=== PATIENT | female | born 1960 | race Two or more races ===

== ENCOUNTER 2016-12-17 11:14 | Day surgery (SDC) | payer BC ==
[2016-12-16 08:47] VITALS: BMI 39.6
[~2016-12-17 11:14] MED LIST: LACTATED RINGERS 1,000 ML IV SCH
[2016-12-17 11:41] VITALS: TEMP 98.9
[2016-12-17 11:44] LABS: Glucose,Whole Blood 233 mg/dL (75-99)
[2016-12-17] MEDS ORDERED: PROPOFOL 10 MG/ML 20 ML VIAL IV ONE (12:58)
[2016-12-17] MEDS ORDERED: LIDOCAINE 1% INJ 10MG/ML (20 ML MDV) ONE (12:58)
--- NOTE | 2016-12-17 13:14 | P.GSHP ---
History of Present Illness H&P Date: 12/17/16 Chief Complaint: Epigastric pain, colitis Asst. 56-year-old female who's referred from Dr. Galicia. Patient presents today for EGD colonoscopy. She's had complaints of epigastric pain and colitis symptoms. Patient has had chronic diarrhea. Past Medical History Past Medical History: Diabetes Mellitus, Thyroid Disorder History of Any Multi-Drug Resistant Organisms: None Reported Past Surgical History: Section, Tubal Ligation Additional Past Surgical History / Comment(s): C SECTION X4 Past Anesthesia/Blood Transfusion Reactions: No Reported Reaction Past Psychological History: No Psychological Hx Reported Smoking Status: Former smoker Past Alcohol Use History: Rare Additional Past Alcohol Use History / Comment(s): STARTED SMOKING AT AGE 15 QUIT AT AGE 22 SMOKED 1/2PPD Past Drug Use History: None Reported - Past Family History Son(s) Family Medical History: Cancer Additional Family Medical History / Comment(s): ADRENAL CANCER Medications and Allergies Home Medications Medication Instructions Recorded Confirmed Type Insulin Glargine,Hum.rec.anlog 0 unit SQ DAILY 12/16/16 12/17/16 History [Lantus Solostar] Levothyroxine Sodium [Synthroid] 25 mcg PO DAILY 12/16/16 12/17/16 History Liraglutide [Victoza 3-Praveen] 1.2 mg SQ HS 12/16/16 12/17/16 History Pioglitazone [Actos] 15 mg PO DAILY 12/16/16 12/17/16 History Allergies Allergy/AdvReac Type Severity Reaction Status Date / Time No Known Allergies Allergy Verified 12/17/16 11:32 Surgical - Exam Vital Signs Temp Pulse Resp BP Pulse Ox 98.9 F 99 16 149/101 96 12/17/16 11:33 12/17/16 11:33 12/17/16 11:33 12/17/16 11:33 12/17/16 11:33 - General well developed, no distress - Eyes PERRL - ENT normal pinna - Neck no masses - Respiratory normal expansion - Cardiovascular Rhythm: regular - Abdomen Abdomen: soft, non tender Results - Labs Abnormal Lab Results - Last 24 Hours (Table) 12/17/16 Range/Units 11:40 POC Glucose (mg/dL) 233 H (75-99) mg/dL Assessment and Plan Plan: Epigastric abdominal pain, history of diarrhea consistent with colitis. We'll perform EGD colonoscopy.
--- NOTE | 2016-12-17 13:37 | P.OP ---
Date of Procedure: 12/17/16 Preoperative Diagnosis: Epigastric pain Colitis Postoperative Diagnosis: Antral gastritis No significant hiatal hernia Mild esophagitis Diverticulosis Sigmoid colon biopsy pathology pending Procedure(s) Performed: EGD Colonoscopy Implants: Anesthesia: MAC Surgeon: Bro Garcia Pathology: other (Antrum, esophagus, sigmoid colon) Condition: stable Disposition: PACU Indications for Procedure: Operative Findings: Description of Procedure: The patient's placed on the endoscopy table lateral position. She received IV sedation. The gastric scope some placed oropharynx passed in the esophagus into the stomach. Scope was then placed through the pylorus. First and second portion of the duodenum appeared normal. Scope was then brought back the antrum and this appeared mildly inflamed. A biopsies was performed. Scope was unretroflexed and remainder of the stomach appeared normal. There is no significant hiatal hernia. The GE junction was at 47 is. The distal esophagus appeared minimally inflamed and a biopsies performed. The proximal esophagus appeared normal. Scope was then brought back and withdrawn for patient. Next digital rectal exam was performed which revealed no abnormalities. The flexible colonoscope was then placed patient anus and passed throughout the entire colon. The ileocecal valve was visualized. The cecum, ascending, transverse and descending colon appeared normal. In the sigmoid colon there was asked extensive diverticular changes. There was a course the colon which looked minimal inflamed and a biopsies performed. Scope was brought back the rectum and this appeared normal. Scope was withdrawn for patient.
[2016-12-17 14:10] VITALS: BP 136/79; PULSE 87; RESP 18
[2016-12-17 14:10] LABS: Glucose,Whole Blood 182 mg/dL (75-99)
--- NOTE | 2016-12-17 16:41 | NM ---
EXAMINATION TYPE: NM hepatobiliary w EF DATE OF EXAM: 12/17/2016 COMPARISON: NONE HISTORY: Epigastric pain TECHNIQUE: After the intravenous administration of 5.5 mCi Tc 99m Mebrofenin hepatobiliary scintigrap hy is performed. Immediate images post injection. FINDINGS: There is satisfactory initial accumulation of tracer by the liver. The gallbladder is visualized wit hin 44 minutes. The small bowel activity is noted within minutes. At one hour 8 ounces of oral ensu re plus is given to mimic CCK and gallbladder ejection fraction is calculated at 52 %, in the normal range. Therefore there is no scintigraphic evidence of cystic or common bile duct obstruction to sug gest acute cholecystitis or gallbladder dyskinesia. IMPRESSION: Exam is within normal limits.
== END 2016-12-17 14:25 | disposition home or self-care (01) ==
LOC: ORWHC2ENDO 11:14
PROVIDERS: ATTEND Surgery
DX: K20.9 Esophagitis, unspecified (principal); K29.50 Unspecified chronic gastritis without bleeding; K52.9 Noninfective gastroenteritis and colitis, unspecified; E11.9 Type 2 diabetes mellitus without complications; E07.9 Disorder of thyroid, unspecified; K57.30 Diverticulosis of large intestine without perforation or abscess without bleeding; Z87.891 Personal history of nicotine dependence; Z79.84 Long term (current) use of oral hypoglycemic drugs; Z79.4 Long term (current) use of insulin; Z79.899 Other long term (current) drug therapy
CPT/HCPCS: 43239; 45380; 88305; 88342; 78226; A9537; J2001; J2704

== ENCOUNTER → 2021-08-21 | Outpatient (CLI) | payer BC ==
[2021-08-21 15:35] LABS: Appearance,Urine Clear (Clear); Bilirubin,Urine Negative (Negative); Blood,Urine Negative (Negative); Color,Urine Light Yellow; Glucose,Urine (UA) Negative (Negative); Ketones,Urine Negative (Negative); Leukocyte Esterase,Urine Negative (Negative); Nitrite,Urine Negative (Negative); PH, Urine 5.5 (5.0-8.0); Protein,Urine Negative (Negative); Specific Gravity,Urine 1.004 (1.001-1.035); Urobilinogen,Urine <2.0 mg/dL (<2.0)
[2021-08-21 19:46] LABS: HCT 43.4 % (37.2-46.3); HGB 13.8 g/dL (12.0-15.0); MCH 29.8 pg (27.0-32.0); MCHC 31.8 g/dL (32.0-37.0); MCV 93.7 fL (80.0-97.0); Mean Platelet Volume 10.6 fL (9.5-12.2); Platelet Count 275 X 10*3/uL (140-440); RBC 4.63 X 10*6/uL (4.10-5.20); RDW 13.3 % (11.5-14.5); WBC 9.45 X 10*3/uL (4.50-10.00)
[2021-08-21 20:03] LABS: INR 0.94 (0.90-1.11); Prothrombin Time 10.4 sec (9.9-11.9)
[2021-08-21 20:47] LABS: African American GFR (CKD) 92.9 (60.0-200.0); Albumin 4.1 g/dL (3.8-4.9); Albumin/Globulin Ratio 1.52 (1.60-3.17); Anion Gap 10.3 mmol/L (10.00-18.00); BUN/Creat Ratio 17.25 Ratio (12.00-20.00); Blood Urea Nitrogen 13.8 mg/dL (9.0-27.0); Calcium 9.2 mg/dL (8.7-10.3); Carbon Dioxide 24.7 mmol/L (20.0-27.5); Globulin 2.7 g/dL (1.6-3.3); Non-African American GFR(CKD) 80.1 (60.0-200.0); Potassium 4.9 mmol/L (3.5-5.5); Total Bilirubin 0.3 mg/dL (0.30-1.20); Total Protein 6.8 g/dL (6.2-8.2)
== END | disposition home or self-care (01) ==
LOC: LABPAT 13:04
PROVIDERS: ATTEND Orthopaedic Surgery
DX: Z01.812 Encounter for preprocedural laboratory examination (principal); M16.11 Unilateral primary osteoarthritis, right hip; E11.9 Type 2 diabetes mellitus without complications; E03.9 Hypothyroidism, unspecified
CPT/HCPCS: 80053; 81003; 85027; 85610; 85730; 87070; 93005

== ENCOUNTER → 2021-08-21 | Outpatient (CLI) | payer BC ==
[2021-08-21 20:46] LABS: Chol/HDL Ratio 4.34 Ratio; LDL Cholesterol,Calculated 129.9 mg/dL (0.0-131.0)
== END | disposition home or self-care (01) ==
LOC: LABWHC1 14:02
PROVIDERS: ATTEND Internal Medicine
DX: E11.9 Type 2 diabetes mellitus without complications (principal); E03.9 Hypothyroidism, unspecified
CPT/HCPCS: 36415; 80061; 83036; 83835; 84443

== ENCOUNTER → 2021-09-10 | Outpatient (CLI) | payer BC ==
[2021-09-10 16:59] LABS: INR 0.9 (<1.2); Partial Thromboplastin Time 26.7 sec (22.0-30.0)
[2021-09-10 22:39] LABS: HCT 41.3 % (37.2-46.3); HGB 13.4 g/dL (12.0-15.0); MCH 29.9 pg (27.0-32.0); MCHC 32.4 g/dL (32.0-37.0); MCV 92.2 fL (80.0-97.0); Mean Platelet Volume 10.7 fL (9.5-12.2); NRBC Per 100 WBC 0 /100 WBCS (0.0-0.0); Platelet Count 315 X 10*3/uL (140-440); RBC 4.48 X 10*6/uL (4.10-5.20); RDW 12.9 % (11.5-14.5); WBC 8.13 X 10*3/uL (4.50-10.00)
[2021-09-10 23:24] LABS: Appearance,Urine Clear (Clear); Bacteria,Urine Trace /HPF (None Seen); Bilirubin,Urine Negative (Negative); Blood,Urine Negative (Negative); Color,Urine Yellow (Yellow); Ketones,Urine Negative (Negative); Leukocyte Esterase,Urine Small (Negative); Nitrite,Urine Negative (Negative); Protein,Urine Negative (Negative); RBC,Urine 0-2 /HPF (0-2); Specific Gravity,Urine 1.017 (1.001-1.030)
[2021-09-11 01:19] LABS: African American GFR (CKD) 92.9 (60.0-200.0); Albumin 3.9 g/dL (3.8-4.9); Albumin/Globulin Ratio 1.39 (1.60-3.17); Anion Gap 14.7 mmol/L (10.00-18.00); BUN/Creat Ratio 16.88 Ratio (12.00-20.00); Blood Urea Nitrogen 13.5 mg/dL (9.0-27.0); Carbon Dioxide 21.3 mmol/L (20.0-27.5); Globulin 2.8 g/dL (1.6-3.3); Non-African American GFR(CKD) 80.1 (60.0-200.0); Potassium 4.5 mmol/L (3.5-5.5); Total Bilirubin 0.2 mg/dL (0.30-1.20); Total Protein 6.7 g/dL (6.2-8.2)
== END | disposition home or self-care (01) ==
LOC: LABPAT 15:41
PROVIDERS: ATTEND Orthopaedic Surgery
DX: Z01.812 Encounter for preprocedural laboratory examination (principal); M16.11 Unilateral primary osteoarthritis, right hip
CPT/HCPCS: 36415; 80053; 81001; 85027; 85610; 85730

== ENCOUNTER 2021-09-15 07:45 | Observation (INO) | payer BC ==
[2021-09-14 12:36] VITALS: BMI 42.5
[~2021-09-15 07:45] MED LIST changes: +ACETAMINOPHEN TAB 500 MG TAB PO PRN; +DEXAMETHASONE SOD PHOSPHATE 4 MG/ML 1 ML VIAL IV ONE; +GABAPENTIN 300 MG CAP PO PRN; +HYDROmorphone 0.5 MG/0.5 ML SYRINGE IVP PRN; -LACTATED RINGERS 1,000 ML IV SCH; +MELOXICAM 7.5 MG TAB PO PRN; +ONDANSETRON 4 MG/2 ML VIAL IVP PRN; +TRANEXAMIC ACID 1,000 MG in SODIUM CHLORIDE 0.9% 100 ML IVPB PRN
[2021-09-15] MEDS: LACTATED RINGERS 1,000 ML IV SCH ×2 (08:35→22:43)
[2021-09-15 08:36] LABS: Glucose,Whole Blood 129 mg/dL (75-99)
[2021-09-15] MEDS ORDERED: fentaNYL (PF) 50 MCG/ML 2 ML AMP ONE (08:57)
[2021-09-15] MEDS ORDERED: SODIUM CHLORIDE 0.9% 100 ML BAG ONE (08:57)
[2021-09-15] MEDS ORDERED: PROPOFOL 10 MG/ML 20 ML VIAL IV ONE (08:57)
[2021-09-15] MEDS ORDERED: TRANEXAMIC ACID 1,000 MG/10 ML VIAL ONE (08:57)
[2021-09-15] MEDS ORDERED: MIDAZOLAM 2 MG/2 ML VIAL ONE (08:57)
[2021-09-15] MEDS ORDERED: ROPIVACAINE 5 MG/ML 30 ML VIAL MISCELLANE ONE ×2 (09:37→10:12)
[2021-09-15] MEDS ORDERED: ceFAZolin 1,000 MG in SODIUM CHLORIDE 0.9% 1,000 ML IRRIGATION ONE (09:53)
--- NOTE | 2021-09-15 10:20 | P.OP ---
Date of Procedure: 09/15/21 Preoperative Diagnosis: Severe osteoarthritis right hip Postoperative Diagnosis: Severe osteoarthritis right hip Procedure(s) Performed: Right total hip arthroplasty with a direct anterior approach Implants: [employer] Polarstem standard size 4 collar [employer] R3, 3 hole hemispherical acetabular shell, 48 mm [employer] Reflection 6.5 mm cancellus screw, 20 mm 2 [employer] R3, XLPE 20 acetabular liner [employer]hew Oxinium femoral head 32 m, +0 All components were press-fit. The articulation is Oxinium on polyethylene. Anesthesia: spinal Surgeon: Robel Winter Brusher #1: Farideh Mckinney Estimated Blood Loss (ml): 200 Pathology: other (Femoral head) Condition: stable Disposition: PACU Indications for Procedure: After failure of conservative treatment we discussed the surgical and no nsurgical treatment options at length. Patient wishes to proceed with a total hip arthroplasty with a direct anterior approach. Complications specific to this procedure were discussed at length, including but not limited to infection, leg length discrepancy, dislocation, nerve injury, and fracture. Covid-19 was also discussed at length with the patient, and they are aware of the current policies and procedures. The patient was given the option of delaying surgery, but they elect to proceed knowing these risks. Patient is aware of all these complications and informed consent was obtained Operative Findings: The operative findings are consistent with severe osteoarthritis of the right hip Description of Procedure: Patient was seen and evaluated in the preoperative area and the consent was reviewed. The operative site was marked with a skin marker. The patient was then brought to the operating room and given preoperative antibiotics intravenously. 1 g of Tranexamic acid was also given intravenously. A spinal anesthetic was administered by the anesthesia department. The patient was then placed on the [place] table with the bony prominences well-padded. The hip area was then prepped with a ChloraPrep solution and draped in the usual sterile fashion. A universal timeout was then performed, which confirmed the patient's name, surgical site, ALLERGIES, and procedure being performed on the consent. Next the incision site was located at 1 cm distal and 2 cm lateral to the anterior superior iliac spine. The skin and subcutaneous tissues were sharply incised. Incision was carefully dissected down to the fascia overlying the tensor fascia roni muscle. This fascia was then incised in line with the incision. Care was taken to stay laterally in order to avoid injuring the lateral femoral cutaneous nerve. Next, using blunt finger dissection, the tensor fascia roni muscle was dissected off its investing fascia. The muscle was then carefully retracted laterally with a cobra retractor over the lateral neck of the femur. Next, the circumflex vessels were identified and cauterized using the AquaMantis device. The anterior hip capsule was then exposed. The capsule was then opened and an inverted T fashion. Cobra retractors were then placed intracapsularly. The retractors were maintained intracapsular throughout the procedure. The proximal femur was then visualized. Fluoroscopic x-rays were then taken in order to evaluate the preoperative leg lengths. A small amount of traction was placed on the leg. The femoral neck was then osteotomized at the appropriate level above the lesser trochanter. A small wedge of bone was then removed from the remaining femoral head. Next, using a corkscrew the femoral head was removed from the acetabulum. On gross visual inspection, the femoral head had complete loss of articular cartilage and multiple periarticular osteophytes. The femoral head was then measured. Attention was then turned to the acetabulum. The acetabulum was exposed and any remaining labrum was excised. Sequential reaming of the acetabulum was performed using fluoroscopic guidance until there was a good bed of bleeding cancellus bone. When the appropriate size was reached, a trial was then placed. The position and fit of the trial was checked with fluoroscopy. The trial was then removed. Then, using fluoroscopic guidance, the final implant was impacted at 20 of anteversion and 40 of abduction, and fully seated in the acetabulum. 2 screws were then placed in the acetabulum. Again fluoroscopy was used to check position of the screws. Next, the liner was then impacted, with a 20 elevated liner located in the anterior superior quadrant. Component locking was confirmed. Attention was then directed to the femur. With the aid of the Marengo table, the femur was externally rotated to approximately 130, extended, and adducted under the opposite leg. A side hook was then placed under the proximal femur, and the side hook elevator was used to elevate the proximal femur while releasing the capsule. Retractors were then placed. A capsular release was performed, as well as a release of the conjoined tendon, which afforded excellent visualization of the proximal femur. Next, a box osteotome was used to lateralize the proximal femur. A drapery hand was then used to locate the femoral canal. Sequential broaching was then performed with appropriate size which afforded excellent fixation in the proximal femur. A trial was then placed with appropriate head and neck, and the hip was gently reduced with the aid of the Maren[place] table. Fluoroscopy was then used to check position of the components, as well as to ensure equal leg lengths. The hip was then gently dislocated and the trials were then removed. Final implants were then impacted and the hip was again reduced. Final fluoroscopic x-rays confirmed that the components were in anatomic position, as well as equal leg lengths. The hip was also taken through range of motion, and found to be stable. The hip was then copiously irrigated with antibiotic solution with pulsatile lavage. The hip was then irrigated with Irrisept solution. The soft tissues were then injected with a ropivacaine solution. A second dose of 1 g of Tranexamic acid was also given intravenously. The fascia was then closed with 2-0 strata fix suture. The subcutaneous tissue was closed with 3-0 Vicryl. The subcuticular tissue was closed with 3-0 strata fix suture. The skin was then closed with Exofin skin glue. After the glue and dried, and Optifoam silver impregnated dressing was applied. The patient was then transferred to the recovery room in stable condition. The assistant hvac mechanic JAMI Hernandez was required due to the complexity of surgery, and the need for skilled orthopaedic physician assistant for positioning, draping, exposure, retraction, and closure of the wound.
[2021-09-15] MEDS ORDERED: HYDROmorphone 1 MG/ML 1 ML SYRINGE IVP PRN (10:46)
[2021-09-15] MEDS ORDERED: ONDANSETRON 4 MG/2 ML VIAL IVP PRN (10:46)
[2021-09-15] MEDS ORDERED: NALOXONE 0.4 MG/ML 1 ML VIAL IV PRN (10:46)
[2021-09-15] MEDS ORDERED: MAGNESIUM HYDROXIDE 2,400 MG/10 ML CUP PO PRN (10:46)
[2021-09-15] MEDS ORDERED: hydrOXYzine pamoate 25 MG CAP PO PRN (10:46)
[2021-09-15] MEDS ORDERED: HYDROmorphone 0.2 MG/1 ML SYRINGE IVP PRN (10:46)
--- NOTE | 2021-09-15 11:15 | XR ---
Limited right hip HISTORY: Status post right hip arthroplasty Single frontal view of the right hip. Her graft patient is status post right hip arthroplasty. There is anatomic alignment. Lucency is present within the soft tissues. IMPRESSION: Orthopedic follow-up.
--- NOTE | 2021-09-15 11:24 | XR ---
Fluoroscopy HISTORY: Right hip replacement 40 seconds fluoroscopy time supplied to the referring clinician. 2 intraoperative C-arm images docum ent the procedure. See dictated report from orthopedic surgery.
[2021-09-15 11:26] LABS: Glucose,Whole Blood 147 mg/dL (75-99)
[2021-09-15] MEDS ORDERED: LACTATED RINGERS 1,000 ML IV ONE (11:26)
[2021-09-15] MEDS: INSULIN ASPART (NovoLOG) 100 UNIT/ML VIAL SQ SCH ×3 (11:55→22:44)
[2021-09-15] MEDS: traMADol 50 MG TAB PO PRN ×3 (12:02→23:57)
[2021-09-15] MEDS: SODIUM CHLORIDE 0.9% 1,000 ML IV SCH ×2 (12:49→23:59)
[2021-09-15] MEDS: HYDROmorphone 1 MG/ML 1 ML SYRINGE IVP PRN ×2 (14:08→20:51)
[2021-09-15 16:44] LABS: Glucose,Whole Blood 294 mg/dL (75-99)
[2021-09-15 20:22] LABS: Glucose,Whole Blood 191 mg/dL (75-99)
[2021-09-15] MEDS: ASPIRIN 325 MG TAB PO SCH (20:51)
[2021-09-15] MEDS ORDERED: LIRAGLUTIDE 0.6 MG/0.1 ML SQ SCH (21:00)
[2021-09-15] MEDS ORDERED: LEVOTHYROXINE 25 MCG TAB PO SCH (21:00)
[2021-09-15] MEDS ORDERED: INSULIN DETEMIR (LEVEMIR) 100 UNIT/ML SYR SQ SCH (21:00)
[2021-09-15] MEDS ORDERED: PIOGLITAZONE 45 MG TAB PO SCH (21:00)
[2021-09-15] MEDS ORDERED: SENNOSIDES-DOCUSATE SODIUM 1 EACH TAB PO SCH (21:00)
--- NOTE | 2021-09-15 23:18 | P.CONS ---
History of Present Illness - Reason for Consult Consult date: 09/15/21 Medical management - Chief Complaint Status post right hip arthroplasty - History of Present Illness Patient is a 61-year-old female with a known history of diabetes type 2 insulin- dependent, hypothyroidism, osteoarthritis and previous history of smoking was admitted to the hospital for elective right total hip arthroplasty. Patient tolerated the procedure very well. Currently denies any complaints of right hip pain. Patient was hypotensive with blood pressure 188/88 on admission. Medicine service was consulted. Patient does also have history of diabetes. Currently patient denied any complaints of chest pain or shortness of breath. No headache or dizziness or lightheadedness. No fever no chills. No cough or sputum production. Denies any recent illnesses. Review of Systems Constitutional: Patient denies any fever or chills . No generalized weakness or weight loss. Abdomen: Patient denied nausea vomiting and diarrhea and abdominal pain. Cardiovascular: Patient denies any chest pain or short of breath no palpitations. Respiratory: patient denied any cough or sputum production. No shortness of breath Neurologic: Patient denied any numbness or tingling headache. Musculoskeletal: Patient denies any complaints of joint swelling or deformity. Skin: Negative Psychiatric: Negative Endocrine: No heat or cold intolerance. No recent weight gain. Genitourinary: No dysuria or hematuria. All other 14 point ROS negative except the above Past Medical History Past Medical History: Diabetes Mellitus, Osteoarthritis (OA), Thyroid Disorder History of Any Multi-Drug Resistant Organisms: None Reported Past Surgical History: Section, Tubal Ligation Additional Past Surgical History / Comment(s): C SECTION X4,colonoscopy, right hip arthroplasty. Past Anesthesia/Blood Transfusion Reactions: No Reported Reaction Past Psychological History: No Psychological Hx Reported Smoking Status: Former smoker Past Alcohol Use History: Rare Additional Past Alcohol Use History / Comment(s): STARTED SMOKING AT AGE 15 QUIT AT AGE 22 SMOKED 1/2PPD Past Drug Use History: None Reported - Past Family History Son(s) Family Medical History: Cancer Additional Family Medical History / Comment(s): 2 sons had adrenal cancer Medications and Allergies Home Medications Medication Instructions Recorded Confirmed Type Insulin Glargine,Hum.rec.anlog 12 - 14 unit SQ HS 12/16/16 09/14/21 History [Lantus Solostar] Levothyroxine Sodium [Synthroid] 25 mcg PO HS 12/16/16 09/14/21 History Liraglutide [Victoza 3-Praveen] 1.2 mg SQ HS 12/16/16 09/14/21 History Acetaminophen [Tylenol Extra 1,000 mg PO Q6HR PRN 08/28/21 09/15/21 History Strength] Pioglitazone [Actos] 45 mg PO HS 08/28/21 09/14/21 History Naproxen Sodium [Aleve] 440 mg PO BID PRN 09/14/21 09/14/21 History Aspirin 325 mg PO BID #60 tab 09/15/21 Rx Ondansetron Odt [Zofran Odt] 1 tab PO Q8HR PRN #10 tab 09/15/21 Rx Sennosides [Senokot] 2 tab PO DAILY PRN #60 tablet 09/15/21 Rx traMADol HCl [Ultram] 1 - 2 tab PO Q6H PRN #32 tab 09/15/21 Rx Allergies Allergy/AdvReac Type Severity Reaction Status Date / Time No Known Allergies Allergy Verified 09/15/21 08:04 Physical Exam Vitals: Vital Signs Temp Pulse Resp BP Pulse Ox 09/15/21 11:09 74 16 158/72 99 09/15/21 10:56 75 16 158/80 100 09/15/21 10:41 97 F L 90 16 165/78 99 09/15/21 08:14 97.7 F 84 16 188/88 96 Intake and Output 09/14/21 09/15/21 09/15/21 22:59 06:59 14:59 Intake Total 1001 Output Total 200 Balance 801 Intake: IV 1001 Output: Estimated Blood Loss 200 Other: Weight 102.6 kg PHYSICAL EXAMINATION: Patient is lying in the bed comfortably, no acute distress, awake alert and oriented.. HEENT: Normocephalic. Neck is supple. Pupils reactive. Nostrils clear. Oral cavity is moist. Neck reveals no JVD, carotid bruits, or thyromegaly. CHEST EXAMINATION: Trachea is central. Symmetrical expansion. Lung ferreira clear to auscultation and percussion. CARDIAC: Normal S1, S2 with no gallops. No murmurs ABDOMEN: Soft. Bowel sounds normal. No organomegaly. No abdominal bruits. Extremities: reveal no edema. No clubbing or cyanosis Neurologically awake, alert, oriented x3 with well-coordinated movements. No f ocal deficits noted Skin: No rash or skin lesions. Psychiatric: Cooperative. Nonsuicidal Musculoskeletal: No joint swelling or deformity. Normal range of motion. Results Labs: Abnormal Lab Results - Last 24 Hours (Table) 09/15/21 09/15/21 Range/Units 08:27 11:14 POC Glucose (mg/dL) 129 H 147 H (75-99) mg/dL Assessment and Plan Assessment: Status post right total hip arthroplasty postoperative day 0 Hyperglycemia with uncontrolled diabetes type 2 Elevated blood pressure likely due to pain and anxiety before surgery. Hypothyroidism Osteoarthritis DVT prophylaxis Morbid obesity BMI 42.7 Plan: Patient will be continued on home insulin regimen along with a sliding scale. Continue with levothyroxine and encourage incentive spirometry and ambulation/PT OT. Blood pressure is improved now. We will continue to monitor closely and further recommendations based on clinical course. Thank you for your consult. Time with Patient: Greater than 30
[2021-09-16] MEDS: traMADol 50 MG TAB PO PRN ×3 (03:38→13:01)
[2021-09-16 06:56] LABS: Glucose,Whole Blood 198 mg/dL (75-99)
[2021-09-16] MEDS: ASPIRIN 325 MG TAB PO SCH (07:37)
[2021-09-16] MEDS: INSULIN ASPART (NovoLOG) 100 UNIT/ML VIAL SQ SCH ×2 (07:44→12:12)
[2021-09-16 08:30] VITALS: BP 138/80; RESP 18; TEMP 99.2
[2021-09-16] MEDS ORDERED: MELOXICAM 7.5 MG TAB PO SCH (09:00)
[2021-09-16 09:38] LABS: HCT 36.8 % (37.2-46.3); HGB 11.5 g/dL (12.0-15.0); MCH 29.6 pg (27.0-32.0); MCHC 31.3 g/dL (32.0-37.0); MCV 94.6 fL (80.0-97.0); Mean Platelet Volume 10.9 fL (9.5-12.2); NRBC Per 100 WBC 0 /100 WBCS (0.0-0.0); Platelet Count 267 X 10*3/uL (140-440); RBC 3.89 X 10*6/uL (4.10-5.20)
[2021-09-16 09:57] LABS: African American GFR (CKD) 80.5 (60.0-200.0); Anion Gap 10.8 mmol/L (10.00-18.00); Blood Urea Nitrogen 13.5 mg/dL (9.0-27.0); Calcium 8.3 mg/dL (8.7-10.3); Carbon Dioxide 24.2 mmol/L (20.0-27.5); Non-African American GFR(CKD) 69.5 (60.0-200.0); Potassium 4.9 mmol/L (3.5-5.5)
--- NOTE | 2021-09-16 10:20 | P.DS ---
Providers Date of admission: 09/15/21 22:21 Expected date of discharge: 09/16/21 Attending physician: Robel Winter Consults: 09/15/21 10:46 Consult Physician Routine Consulting Provider: Steve Villalta Consult Reason/Comments: medical management Do you want consulting provider notified?: Yes Primary care physician: Crystal Werner - Discharge Diagnosis(es) (1) Primary localized osteoarthritis of right hip Current Visit: Yes Status: Acute (2) Status post total hip replacement, right Current Visit: Yes Status: Acute Hospital Course: This is a 61-year-old female with known history of degenerative arthritis of the right hip. The patient presents for evaluation. After discussion and consideration patient elects to proceed with total hip arthroplasty with direct anterior approach. The patient is seen preoperatively by primary care physician and cleared for surgery. Patient is admitted to [facility] on 09/15/2021 for total hip arthroplasty with direct anterior approach. The procedure is performed without complication or sequelae. The patient is doing well postoperatively. Labs and vital signs are stable on day of discharge. On day of discharge patient's hip incision is healing well. There is minimal erythema. There is no drainage noted at this time. There is minimal soft tissue swelling to the hip and thigh. Patient has full foot and ankle motion without difficulty or pain. Neurovascular status to the lower extremity is intact. Patient is discharged to home in good condition. Please see med rec for accurate list of home medications. Patient Condition at Discharge: Good Plan - Discharge Summary Discharge Rx Participant: No New Discharge Prescriptions: New Ondansetron Odt [Zofran Odt] 1 tab PO Q8HR PRN #10 tab PRN Reason: Nausea Aspirin 325 mg PO BID #60 tab Sennosides [Senokot] 2 tab PO DAILY PRN #60 tablet PRN Reason: Constipation traMADol HCl [Ultram] 1 - 2 tab PO Q6H PRN #32 tab PRN Reason: Pain No Action Levothyroxine Sodium [Synthroid] 25 mcg PO HS Liraglutide [Victoza 3-Praveen] 1.2 mg SQ HS Insulin Glargine,Hum.rec.anlog [Lantus Solostar] 12 - 14 unit SQ HS Pioglitazone [Actos] 45 mg PO HS Acetaminophen [Tylenol Extra Strength] 1,000 mg PO Q6HR PRN PRN Reason: Pain Naproxen Sodium [Aleve] 440 mg PO BID PRN PRN Reason: Pain Discharge Medication List Insulin Glargine,Hum.rec.anlog [Lantus Solostar] 12 - 14 unit SQ HS 12/16/16 [History] Levothyroxine Sodium [Synthroid] 25 mcg PO HS 12/16/16 [History] Liraglutide [Victoza 3-Praveen] 1.2 mg SQ HS 12/16/16 [History] Acetaminophen [Tylenol Extra Strength] 1,000 mg PO Q6HR PRN 08/28/21 [History] Pioglitazone [Actos] 45 mg PO HS 08/28/21 [History] Naproxen Sodium [Aleve] 440 mg PO BID PRN 09/14/21 [History] Aspirin 325 mg PO BID #60 tab 09/15/21 [Rx] Ondansetron Odt [Zofran Odt] 1 tab PO Q8HR PRN #10 tab 09/15/21 [Rx] Sennosides [Senokot] 2 tab PO DAILY PRN #60 tablet 09/15/21 [Rx] traMADol HCl [Ultram] 1 - 2 tab PO Q6H PRN #32 tab 09/15/21 [Rx] Follow up Appointment(s)/Referral(s): Crystal Werner MD [Primary Care Provider] - 1 Week Robel Winter DO [Doctor of Osteopathic Medicine] - 09/28/21 2:30 pm Activity/Diet/Wound Care/Special Instructions: Weightbearing as tolerated with walker. Leave dressing intact. Dressing may be removed by home care nurse or by patient in 7 days. Then change dressing twice daily until follow up. May shower with initial dressing intact and after removal. If dressing become saturated, please remove. Please take aspirin 325mg twice daily for 30 days to prevent blood clots. Recommend use of compression stockings daily until follow up to help prevent swelling and blood clots. May remove at night before sleeping. Please follow-up with [facility] in 2 weeks and call with any questions or concerns, .
[2021-09-16 10:25] LABS: Basophils # (A) 0.02 X 10*3/uL (0.00-0.10); Basophils % (A) 0.2 %; Eosinophils # (A) 0.02 X 10*3/uL (0.04-0.35); Eosinophils % (A) 0.2 %; Immature Grans, Automated 0.3 %; Lymphocytes # (A) 3.01 X 10*3/uL (0.90-5.00); Lymphocytes % (A) 25.9 %; Monocytes # (A) 1.78 X 10*3/uL (0.20-1.00); Monocytes % (A) 15.3 %; Neutrophils # (A) 6.73 X 10*3/uL (1.80-7.70); Neutrophils % (A) 58.1 %
[2021-09-16 10:50] VITALS: PULSE 116
--- NOTE | 2021-09-16 11:04 | P.PN ---
Subjective Progress Note Date: 09/16/21 Patient is a 61-year-old female with a known history of diabetes type 2 insulin- dependent, hypothyroidism, osteoarthritis and previous history of smoking was admitted to the hospital for elective right total hip arthroplasty. Patient tolerated the procedure very well. Currently denies any complaints of right hip pain. Patient was hypotensive with blood pressure 188/88 on admission. Medicine service was consulted. Patient does also have history of diabetes. Currently patient denied any complaints of chest pain or shortness of breath. No headache or dizziness or lightheadedness. No fever no chills. No cough or sputum production. Denies any recent illnesses. 09/16/2021 Patient is currently sitting in the chair comfortably. Awake alert and oriented 3. No complaints of chest pain or shortness of breath. No leg swelling. No dizziness or lightheadedness. Patient was tachycardic this morning this seemed to be improved after sitting in the chair. No complaints of fever or chills. No cough or sputum production. Patient is tolerating oral diet. IV fluids have been discontinued. Patient is being discharged home today. Current medications reviewed. Objective - Vital Signs Vital signs: Vital Signs Temp 99.2 F 09/16/21 08:00 Pulse 123 H 09/16/21 08:00 Resp 18 09/16/21 08:00 BP 138/80 09/16/21 08:00 Pulse Ox 94 L 09/16/21 08:44 Intake & Output 09/15/21 09/16/21 09/16/21 18:59 06:59 18:59 Intake Total 1001 Output Total 200 Balance 801 Weight 102.6 kg Intake: IV 1001 Output: Estimated Blood Loss 200 Other: Voiding Method Toilet # Voids 3 - Exam PHYSICAL EXAMINATION: Patient is lying in the bed comfortably, no acute distress, awake alert and oriented.. HEENT: Normocephalic. Neck is supple. Pupils reactive. Nostrils clear. Oral cavity is moist. Neck reveals no JVD, carotid bruits, or thyromegaly. CHEST EXAMINATION: Trachea is central. Symmetrical expansion. Lung ferreira clear to auscultation and percussion. CARDIAC: Normal S1, S2 with no gallops. No murmurs ABDOMEN: Soft. Bowel sounds normal. No organomegaly. No abdominal bruits. Extremities: reveal no edema. No clubbing or cyanosis Neurologically awake, alert, oriented x3 with well-coordinated movements. No focal deficits noted Skin: No rash or skin lesions. Psychiatric: Cooperative. Nonsuicidal Musculoskeletal: No joint swelling or deformity. Normal range of motion. - Labs CBC & Chem 7: 09/16/21 05:39 09/16/21 05:39 Labs: Abnormal Lab Results - Last 24 Hours (Table) 09/15/21 09/15/21 09/15/21 Range/Units 11:14 16:43 20:20 WBC (4.50-10.00) X 10*3/uL RBC (4.10-5.20) X 10*6/uL Hgb (12.0-15.0) g/dL Hct (37.2-46.3) % MCHC (32.0-37.0) g/dL POC Glucose (mg/dL) 147 H 294 H 191 H (75-99) mg/dL 09/16/21 09/16/21 Range/Units 05:39 06:55 WBC 11.60 H (4.50-10.00) X 10*3/uL RBC 3.89 L (4.10-5.20) X 10*6/uL Hgb 11.5 L (12.0-15.0) g/dL Hct 36.8 L (37.2-46.3) % MCHC 31.3 L (32.0-37.0) g/dL POC Glucose (mg/dL) 198 H (75-99) mg/dL Assessment and Plan Assessment: Status post right total hip arthroplasty postoperative day 1 Tachycardia. Improved now. Hyperglycemia with uncontrolled diabetes type 2 Elevated blood pressure likely due to pain and anxiety before surgery. Hypothyroidism Osteoarthritis DVT prophylaxis Morbid obesity BMI 42.7 Plan: Patient will be continued on incentive spirometry and encourage ambulation. Continue with DVT prophylaxis as per primary team. Continue with levothyroxine and encourage incentive spirometry and ambulation/PT OT. Blood pressure is improved now. Blood sugar is controlled. Recommend follow with primary care physician in the next 3-5 days. Discharge medication reconciliation was done. Time with Patient: Greater than 30
[2021-09-16 11:35] LABS: Glucose,Whole Blood 243 mg/dL (75-99)
== END 2021-09-16 13:34 | disposition home health service (06) ==
LOC: OR 07:45 → 4SSUR 10:00 → OR 21:35 → 4SSUR 22:21
PROVIDERS: ADMIT Orthopaedic Surgery; ATTEND Orthopaedic Surgery
DX: M16.11 Unilateral primary osteoarthritis, right hip (principal); E11.65 Type 2 diabetes mellitus with hyperglycemia; R00.0 Tachycardia, unspecified; R03.0 Elevated blood-pressure reading, without diagnosis of hypertension; M25.751 Osteophyte, right hip; F41.9 Anxiety disorder, unspecified; E03.9 Hypothyroidism, unspecified; E66.01 Morbid (severe) obesity due to excess calories; Z68.41 Body mass index [BMI] 40.0-44.9, adult; Z79.84 Long term (current) use of oral hypoglycemic drugs; Z79.890 Hormone replacement therapy; Z79.4 Long term (current) use of insulin; Z79.899 Other long term (current) drug therapy; Z87.891 Personal history of nicotine dependence; Z97.3 Presence of spectacles and contact lenses; Z98.51 Tubal ligation status; Z98.891 History of uterine scar from previous surgery; Z98.890 Other specified postprocedural states; Z80.8 Family history of malignant neoplasm of other organs or systems
CPT/HCPCS: 94760; 97161; 97535; 97165; 86900; 86901; 80048; 85025; 86850; 88300; 73501; 27130; G0378 ×2; C1776; J2250; J1100; J0690 ×2; J2405; J3010; J1170; J2795; J2704